=== PATIENT | male | born 1945 | race Caucasian/White ===

== ENCOUNTER 2023-12-19 06:48 | Emergency (ER) | payer MEDICARE, OTHER ==
[~2023-12-19] VITALS: Ht 172.7 cm; Wt 92.9 kg
[~2023-12-19 06:48] MED LIST: AMLO10TA13 PO; BENZ-111 PO; BISO5TAB20 PO; FAMO20TA8 PO; FERR142T13 PO; FLUT9.9S BOTHNARES; GUAI-652 PO; HYAL60CA PO; LISI20TA28 PO; LOPE2CAP PO; LORA10CA PO; METO10TA3 PO; MULT-1172 PO; TRAZ-256 PO; VITA-268 PO; [UNRECOGNIZED DRUG - CODE] PO
[2023-12-19 07:22] LABS: BASOPHILS # (AUTO) 0.1 X10'3 (0-0.2); BASOPHILS % (AUTO) 0.5 % (0-1); EOSINOPHILS # (AUTO) 0.1 X10'3 (0-0.9); EOSINOPHILS % (AUTO) 0.7 % (0-6); HEMATOCRIT 33.3 % (42.0-52.0); HEMOGLOBIN 11.2 g/dl (14.0-17.9); LYMPHOCYTES # (AUTO) 1.5 X10'3 (1.1-4.8); LYMPHOCYTES % (AUTO) 13.6 % (21-51); MEAN CORPUSCULAR HGB CONC 33.6 g/dL (33.0-36.5); MEAN CORPUSCULAR VOLUME 86.4 FL (78-98); MEAN PLATELET VOLUME 7.6 FL (7.4-10.4); MONOCYTES # (AUTO) 2.6 X10'3 (0-0.9); MONOCYTES % (AUTO) 24.1 % (2-12); NEUTROPHILS # (AUTO) 6.7 X10'3 (1.8-7.7); NEUTROPHILS % (AUTO) 61.1 % (42-75); PLATELET COUNT 291 X10'3 (140-440); RED BLOOD COUNT 3.85 X10'6 (4.70-6.10); RED CELL DISTRIBUTION WIDTH 17.5 % (11.5-14.5); WHITE BLOOD COUNT 10.9 X10'3 (4.5-11.0)
[2023-12-19 07:52] LABS: ALBUMIN 3.1 G/DL (3.4-5.0); ANION GAP 14 (8-16); BLOOD UREA NITROGEN 7 MG/DL (7-18); BUN/CREATININE RATIO 7.9 (10.0-20.0); CALCIUM 7.2 MG/DL (8.5-10.1); CHLORIDE 100 MMOL/L (99-107); CREATININE 0.89 MG/DL (0.60-1.10); GLUCOSE 154 MG/DL (70-104); POTASSIUM 3.1 MMOL/L (3.5-5.1); PRO BRAIN NATRIURETIC PEPTIDE 104 PG/ML (0-450); SODIUM 138 MMOL/L (135-145); TOTAL CARBON DIOXIDE 23.6 MMOL/L (24-32); eCRCL 64 ML/MIN; eGFR 82 ML/MIN
[2023-12-19 08:11] VITALS: TEMP 98.1
[2023-12-19 08:14] LABS: TOTAL CELLS COUNTED 100
[2023-12-19 08:15] LABS: ANISOCYTOSIS 1+; ELLIPTOCYTES FEW; PLATELET ESTIMATE NORMAL; POLYCHROMASIA FEW; STOMATOCYTES FEW; TEAR DROP CELLS FEW
[2023-12-19] MEDS ORDERED: potassium Cl 20 mEq SR tablet PO STA (08:28)
[2023-12-19] MEDS: predniSONE 20 mg tablet PO ONE (09:03)
[2023-12-19] MEDS: ondansetron 4mg rapidly disintigrating tab PO ONE (09:03)
[2023-12-19] MEDS: amox tr/potassium clavulanate 875/125mg TAB PO ONE (09:03)
[2023-12-19] MEDS: albuterol 2.5 MG/3 ML nebule NEB ONE (11:35)
[2023-12-19 11:36] VITALS: PULSE 97; RESP 18; O2SAT 92
[2023-12-19] MEDS: metoclopramide 5 mg/ml inj IV ONE (11:41)
[2023-12-19 11:50] VITALS: PULSE 81; RESP 16; O2SAT 96
[2023-12-19] MEDS ORDERED: HYDR473S79 PO (12:37)
[2023-12-19] MEDS ORDERED: PRED20TA PO (12:37)
[2023-12-19] MEDS ORDERED: ONDA4TAB12 PO (12:37)
[2023-12-19] MEDS ORDERED: ALBU8HFA INH (12:37)
[2023-12-19] MEDS ORDERED: AMOX-580 PO (12:38)
[2023-12-19 12:53] VITALS: BP 110/68; PULSE 100; RESP 20; O2SAT 93
[2023-12-19] MEDS ORDERED: QUET25TA PO (15:34)
== END 2023-12-19 12:57 | disposition home or self-care (01) ==
LOC: ER 06:48
DX: R05.9 Cough, unspecified (principal); J98.01 Acute bronchospasm
CPT/HCPCS: 36415; 71046; 80048; 83605; 83880; 85007; 85025; 87040; 94640; 94760; 96374; 99285; J2765; J7512

== ENCOUNTER 2023-12-21 15:44 | Inpatient (IN) | payer MEDICARE, OTHER ==
[~2023-12-21] VITALS: Ht 172.7 cm; Wt 94.5 kg
[~2023-12-21 15:44] MED LIST changes: +ALBU8HFA INH; +AMOX-580 PO; +HYDR473S79 PO; +ONDA4TAB12 PO; +PRED20TA PO; +QUET25TA PO
[2023-12-21 16:46] LABS: BASOPHILS % (AUTO) 0.1 % (0-1); EOSINOPHILS % (AUTO) 0 % (0-6); HEMATOCRIT 30.8 % (42.0-52.0); HEMOGLOBIN 10.2 g/dl (14.0-17.9); LYMPHOCYTES # (AUTO) 1.2 X10'3 (1.1-4.8); LYMPHOCYTES % (AUTO) 8.2 % (21-51); MEAN CORPUSCULAR HEMOGLOBIN 28.4 PG (27.0-31.0); MEAN CORPUSCULAR HGB CONC 33.1 g/dL (33.0-36.5); MEAN PLATELET VOLUME 7.4 FL (7.4-10.4); MONOCYTES # (AUTO) 0.8 X10'3 (0-0.9); MONOCYTES % (AUTO) 5.6 % (2-12); NEUTROPHILS # (AUTO) 12.5 X10'3 (1.8-7.7); NEUTROPHILS % (AUTO) 86.1 % (42-75); PLATELET COUNT 294 X10'3 (140-440); RED BLOOD COUNT 3.58 X10'6 (4.70-6.10); RED CELL DISTRIBUTION WIDTH 17.6 % (11.5-14.5); WHITE BLOOD COUNT 14.5 X10'3 (4.5-11.0)
[2023-12-21 17:04] LABS: ANION GAP 16 (8-16); BLOOD UREA NITROGEN 18 MG/DL (7-18); BUN/CREATININE RATIO 15.9 (10.0-20.0); CALCIUM 6.8 MG/DL (8.5-10.1); CHLORIDE 101 MMOL/L (99-107); CREATININE 1.13 MG/DL (0.60-1.10); GLUCOSE 279 MG/DL (70-104); POTASSIUM 3.9 MMOL/L (3.5-5.1); SODIUM 138 MMOL/L (135-145); TOTAL CARBON DIOXIDE 20.8 MMOL/L (24-32); eCRCL 50 ML/MIN; eGFR 62 ML/MIN
[2023-12-21 17:11] LABS: ANISOCYTOSIS 1+; PLATELET ESTIMATE NORMAL
[2023-12-21 17:12] LABS: BURR CELLS FEW; ELLIPTOCYTES FEW; POLYCHROMASIA FEW; TEAR DROP CELLS FEW
[2023-12-21 20:10] VITALS: PULSE 94; RESP 20; O2SAT 94
[2023-12-21] MEDS: albuterol 2.5 MG/3 ML nebule CONTNEB PRN (20:10)
[2023-12-21] MEDS: ipratropium 0.5 MG/2.5ML nebule IH ONE (20:10)
[2023-12-21 21:11] VITALS: PULSE 118; RESP 18; O2SAT 93
[2023-12-21] MEDS ORDERED: potassium Cl 20 mEq SR tablet PO PRN (21:20)
[2023-12-21] MEDS ORDERED: ondansetron/PF 4mg/2ml inj IV PRN (21:20)
[2023-12-21] MEDS ORDERED: magnesium 4gm in 100ml NS 100 ML IV PRN (21:20)
[2023-12-21] MEDS ORDERED: potassium Cl 40MEQ/1/2NS 520ml 520 ML IV PRN (21:20)
[2023-12-21] MEDS ORDERED: magnesium Cl slow-release 64mg tablet PO PRN (21:20)
[2023-12-21] MEDS ORDERED: magnesium hydroxide 30ml (MOM) UD suspension PO PRN (21:20)
[2023-12-21] MEDS ORDERED: guaiFENesin 200mg/20mg codeine phos 10ml UD oral syrup PO PRN (21:50)
[2023-12-21] MEDS ORDERED: glucagon, human recombinant 1mg kit SUBCUT PRN (21:55)
[2023-12-21] MEDS ORDERED: dextrose 50%-water 50ml dispensing syringe IV PRN ×2 (21:55)
[2023-12-21] MEDS ORDERED: DEXTROSE 15 GM of carb/4 tabs (each vial/BOTTLE has 4 tablets) PO PRN ×2 (21:55)
[2023-12-21] MEDS: CefTRIAXone/D5W-Rocephin 1gm 50 ML IV ONE (21:57)
[2023-12-21] MEDS: normal saline 1000ml 1,000 ML IV SCH (21:58)
[2023-12-21] MEDS: normal saline 1000ML IV soln IVB ONE (21:58)
[2023-12-21] MEDS: azithromycin/NS 500mg/250ml 250 ML IV ONE (21:58)
[2023-12-21] MEDS: guaiFENesin 200mg/20mg codeine phos 10ml UD oral syrup PO ONE (22:39)
[2023-12-21] MEDS: MESSAGE TO PHARMACY PO ONE (23:07)
[2023-12-21] MEDS: ipratropium/albuterol 3ml nebule NEB SCH (23:17)
[2023-12-21 23:18] VITALS: PULSE 104; RESP 20; O2SAT 94
[2023-12-21 23:25] VITALS: PULSE 105; RESP 25
[2023-12-22] VITALS (13 sets, daily range): BP systolic 103–152; BP diastolic 58–78; PULSE 94–105; RESP 15–20; TEMP 93–98.1; O2SAT 91–96
[2023-12-22] MEDS: CefTRIAXone 2gm/D5W 50ml BAG 50 ML IV SCH (07:23)
[2023-12-22] MEDS: heparin, porcine 5000 units/ml vial SQ SCH (07:24)
[2023-12-22] MEDS: azithromycin/NS 500mg/250ml 250 ML IV SCH (07:24)
[2023-12-22] MEDS: docusate sod 100mg capsule PO SCH (07:24)
[2023-12-22] MEDS: sucralfate 1 gm tablet PO SCH (07:25)
[2023-12-22] MEDS: methylPREDNISolone sod succ 125mg/2ml vial IV SCH (07:25)
[2023-12-22] MEDS: pantoprazole 40 MG vial IV SCH (07:25)
[2023-12-22 07:47] LABS: BASOPHILS % (AUTO) 0.2 % (0-1); EOSINOPHILS # (AUTO) 0.1 X10'3 (0-0.9); EOSINOPHILS % (AUTO) 0.4 % (0-6); HEMATOCRIT 28.1 % (42.0-52.0); HEMOGLOBIN 9.4 g/dl (14.0-17.9); LYMPHOCYTES # (AUTO) 3.4 X10'3 (1.1-4.8); LYMPHOCYTES % (AUTO) 21.7 % (21-51); MEAN CORPUSCULAR HEMOGLOBIN 28.8 PG (27.0-31.0); MEAN CORPUSCULAR HGB CONC 33.6 g/dL (33.0-36.5); MEAN CORPUSCULAR VOLUME 85.7 FL (78-98); MONOCYTES # (AUTO) 1.2 X10'3 (0-0.9); MONOCYTES % (AUTO) 7.4 % (2-12); NEUTROPHILS # (AUTO) 10.9 X10'3 (1.8-7.7); NEUTROPHILS % (AUTO) 70.3 % (42-75); PLATELET COUNT 279 X10'3 (140-440); RED BLOOD COUNT 3.27 X10'6 (4.70-6.10); RED CELL DISTRIBUTION WIDTH 17.7 % (11.5-14.5); WHITE BLOOD COUNT 15.5 X10'3 (4.5-11.0)
[2023-12-22] MEDS ORDERED: iohexol 300mg/ml 100ml inj. ONE (07:59)
[2023-12-22 08:19] LABS: ANION GAP 13 (8-16); BLOOD UREA NITROGEN 17 MG/DL (7-18); BUN/CREATININE RATIO 17.7 (10.0-20.0); CALCIUM 6.2 MG/DL (8.5-10.1); CHLORIDE 105 MMOL/L (99-107); CREATININE 0.96 MG/DL (0.60-1.10); GLUCOSE 115 MG/DL (70-104); POTASSIUM 3.1 MMOL/L (3.5-5.1); SODIUM 140 MMOL/L (135-145); TOTAL CARBON DIOXIDE 22.1 MMOL/L (24-32); eCRCL 59 ML/MIN; eGFR 75 ML/MIN
[2023-12-22] MEDS: normal saline 500ml IV soln 1,000 ML IV ONE (08:40)
[2023-12-22 08:42] LABS: ANISOCYTOSIS 1+; NUCLEATED RED BLOOD CELLS 1 /100WBC (0-0); PLATELET ESTIMATE NORMAL; TOTAL CELLS COUNTED 100
[2023-12-22 08:43] LABS: ELLIPTOCYTES FEW; POLYCHROMASIA FEW
[2023-12-22 11:51] LABS: PRO BRAIN NATRIURETIC PEPTIDE 307 PG/ML (0-450)
[2023-12-22] MEDS: furosemide 40mg/4ml inj IV SCH (12:12)
[2023-12-22] MEDS ORDERED: PRED10TA23 PO (17:47)
[2023-12-22] MEDS: potassium Cl 20 mEq SR tablet PO PRN (18:08)
[2023-12-22] MEDS ORDERED: DEXTROMETHORPHAN PO PRN (18:15)
[2023-12-22] MEDS ORDERED: benzonatate 100mg capsule PO PRN (18:15)
[2023-12-22] MEDS ORDERED: [UNRECOGNIZED DRUG - OTHER] PO PRN (18:15)
[2023-12-22] MEDS ORDERED: GUAIFENESIN PO PRN (18:15)
[2023-12-22] MEDS: thiamine 100mg/ml 2ml inj. IM SCH (20:00)
[2023-12-22] MEDS ORDERED: bisoprolol 5mg tablet PO SCH (20:00)
[2023-12-22] MEDS: traZODone 50mg tablet PO SCH (21:00)
[2023-12-22] MEDS: famotidine 20mg tablet PO SCH (21:18)
[2023-12-22] MEDS: acetaminophen 325mg tablet PO PRN (21:21)
[2023-12-22] MEDS: insulin glargine (Lantus) pen - multi-dose SQ SCH (23:02)
[2023-12-23] VITALS (21 sets, daily range): BP systolic 123–165; BP diastolic 57–70; PULSE 83–112; RESP 16–20; TEMP 97.8–98.1; O2SAT 91–97
[2023-12-23 04:52] LABS: EOSINOPHILS % (AUTO) 0 % (0-6); RED CELL DISTRIBUTION WIDTH 18.2 % (11.5-14.5)
[2023-12-23 04:55] LABS: BASOPHILS % (AUTO) 0.1 % (0-1); HEMATOCRIT 30.7 % (42.0-52.0); HEMOGLOBIN 10.2 g/dl (14.0-17.9); LYMPHOCYTES # (AUTO) 1.4 X10'3 (1.1-4.8); LYMPHOCYTES % (AUTO) 8.5 % (21-51); MEAN CORPUSCULAR HEMOGLOBIN 28.8 PG (27.0-31.0); MEAN CORPUSCULAR HGB CONC 33.1 g/dL (33.0-36.5); MEAN CORPUSCULAR VOLUME 86.8 FL (78-98); MEAN PLATELET VOLUME 7.4 FL (7.4-10.4); MONOCYTES # (AUTO) 0.8 X10'3 (0-0.9); MONOCYTES % (AUTO) 4.9 % (2-12); NEUTROPHILS # (AUTO) 14.6 X10'3 (1.8-7.7); NEUTROPHILS % (AUTO) 86.5 % (42-75); PLATELET COUNT 283 X10'3 (140-440); RED BLOOD COUNT 3.53 X10'6 (4.70-6.10); WHITE BLOOD COUNT 16.9 X10'3 (4.5-11.0)
[2023-12-23 05:10] LABS: D-DIMER 6.35 MG/L FEU (0-0.50)
[2023-12-23 05:20] LABS: ALANINE AMINOTRANSFERASE 22 U/L (12-78); ALBUMIN 3.1 G/DL (3.4-5.0); ALKALINE PHOSPHATASE 89 IU/L (46-116); ANION GAP 18 (8-16); ASPARTATE AMINO TRANSFERASE 15 U/L (10-37); BILIRUBIN,TOTAL 0.2 MG/DL (0.1-1.0); BLOOD UREA NITROGEN 18 MG/DL (7-18); BUN/CREATININE RATIO 15.8 (10.0-20.0); CALCIUM 6.9 MG/DL (8.5-10.1); CHLORIDE 103 MMOL/L (99-107); CREATININE 1.14 MG/DL (0.60-1.10); GLUCOSE 214 MG/DL (70-104); POTASSIUM 3.6 MMOL/L (3.5-5.1); SODIUM 142 MMOL/L (135-145); TOTAL CARBON DIOXIDE 20.8 MMOL/L (24-32); TOTAL PROTEIN 6.3 G/DL (6.4-8.2); eCRCL 50 ML/MIN; eGFR 62 ML/MIN
[2023-12-23 05:31] LABS: TOTAL CELLS COUNTED 100
[2023-12-23 05:32] LABS: ANISOCYTOSIS 2+; ELLIPTOCYTES FEW; PLATELET ESTIMATE NORMAL
[2023-12-23] MEDS: normal saline 500ml IV soln 500 ML IV ONE (07:15)
[2023-12-23] MEDS ORDERED: sodium bicarbonate (8.4%) inj. 100 MEQ in dextrose 5%-water 1,000 ML IV SCH (07:20)
[2023-12-23] MEDS ORDERED: sodium bicarbonate (8.4%) inj. 100 MEQ in sodium chloride 0.45% 1,000 ML IV SCH (07:25)
[2023-12-23] MEDS: sodium bicarbonate (8.4%) inj. 100 MEQ in sodium chloride 0.45% 1,000 ML IV ONE (07:31)
[2023-12-23] MEDS: insulin Lispro (HumaLOG) vial - multi-dose SQ SCH (08:32)
[2023-12-23] MEDS: fluticasone nasal spray 16GM bottle NS PRN (08:34)
[2023-12-23] MEDS: amLODIPine 5mg tablet PO SCH (08:44)
[2023-12-23] MEDS: atenolol 50mg tablet PO SCH (08:47)
[2023-12-23 09:54] LABS: PRO BRAIN NATRIURETIC PEPTIDE 621 PG/ML (0-450)
[2023-12-23] MEDS: enoxaparin 100mg/ml syringe SUBCUT ONE (10:54)
[2023-12-23] MEDS: FERROUS SULFATE 142 MG TABLET.ER (45mg elemental) PO SCH (10:59)
[2023-12-23 19:13] LABS: ALBUMIN 2.8 G/DL (3.4-5.0); ANION GAP 14 (8-16); BLOOD UREA NITROGEN 17 MG/DL (7-18); BUN/CREATININE RATIO 17.7 (10.0-20.0); CHLORIDE 104 MMOL/L (99-107); CREATININE 0.96 MG/DL (0.60-1.10); GLUCOSE 171 MG/DL (70-104); POTASSIUM 3.8 MMOL/L (3.5-5.1); SODIUM 140 MMOL/L (135-145); TOTAL CARBON DIOXIDE 22.5 MMOL/L (24-32); eCRCL 59 ML/MIN; eGFR 75 ML/MIN
[2023-12-23] MEDS: furosemide 40mg/4ml inj IV SCH (20:21)
[2023-12-24] VITALS (12 sets, daily range): BP systolic 110–143; BP diastolic 48–74; PULSE 81–102; RESP 10–25; TEMP 97.3–99.3; O2SAT 93–98
[2023-12-24 06:25] LABS: BASOPHILS # (AUTO) 0.1 X10'3 (0-0.2); BASOPHILS % (AUTO) 0.4 % (0-1); EOSINOPHILS # (AUTO) 0.1 X10'3 (0-0.9); EOSINOPHILS % (AUTO) 0.3 % (0-6); HEMATOCRIT 30.6 % (42.0-52.0); HEMOGLOBIN 10.2 g/dl (14.0-17.9); LYMPHOCYTES # (AUTO) 3.4 X10'3 (1.1-4.8); LYMPHOCYTES % (AUTO) 22.5 % (21-51); MEAN CORPUSCULAR HEMOGLOBIN 28.8 PG (27.0-31.0); MEAN CORPUSCULAR HGB CONC 33.2 g/dL (33.0-36.5); MEAN CORPUSCULAR VOLUME 86.7 FL (78-98); MONOCYTES % (AUTO) 6.6 % (2-12); NEUTROPHILS # (AUTO) 10.6 X10'3 (1.8-7.7); NEUTROPHILS % (AUTO) 70.2 % (42-75); PLATELET COUNT 272 X10'3 (140-440); RED BLOOD COUNT 3.54 X10'6 (4.70-6.10); RED CELL DISTRIBUTION WIDTH 17.6 % (11.5-14.5); WHITE BLOOD COUNT 15.2 X10'3 (4.5-11.0)
[2023-12-24 06:31] LABS: ALBUMIN 3.1 G/DL (3.4-5.0); ANION GAP 16 (8-16); BLOOD UREA NITROGEN 19 MG/DL (7-18); BUN/CREATININE RATIO 19.6 (10.0-20.0); CALCIUM 7.4 MG/DL (8.5-10.1); CHLORIDE 102 MMOL/L (99-107); CREATININE 0.97 MG/DL (0.60-1.10); GLUCOSE 120 MG/DL (70-104); POTASSIUM 3.5 MMOL/L (3.5-5.1); SODIUM 140 MMOL/L (135-145); TOTAL CARBON DIOXIDE 21.9 MMOL/L (24-32); eCRCL 59 ML/MIN; eGFR 74 ML/MIN
[2023-12-24] MEDS: pantoprazole 40 MG vial IV SCH (11:58)
[2023-12-25 02:00] VITALS: BP 151/78; PULSE 81; RESP 16; TEMP 97.1; O2SAT 96
[2023-12-25] MEDS: guaiFENesin ER 600mg tablet PO PRN (04:18)
[2023-12-25 06:00] VITALS: BP 119/70; PULSE 83; RESP 15; TEMP 97.1; O2SAT 99
[2023-12-25 06:04] LABS: BASOPHILS % (AUTO) 0.2 % (0-1); EOSINOPHILS % (AUTO) 0.3 % (0-6); HEMATOCRIT 32.3 % (42.0-52.0); HEMOGLOBIN 10.7 g/dl (14.0-17.9); LYMPHOCYTES # (AUTO) 2.1 X10'3 (1.1-4.8); LYMPHOCYTES % (AUTO) 13.6 % (21-51); MEAN CORPUSCULAR HEMOGLOBIN 28.6 PG (27.0-31.0); MEAN CORPUSCULAR HGB CONC 33.3 g/dL (33.0-36.5); MEAN CORPUSCULAR VOLUME 85.8 FL (78-98); MEAN PLATELET VOLUME 7.1 FL (7.4-10.4); MONOCYTES # (AUTO) 0.9 X10'3 (0-0.9); MONOCYTES % (AUTO) 5.7 % (2-12); NEUTROPHILS # (AUTO) 12.2 X10'3 (1.8-7.7); NEUTROPHILS % (AUTO) 80.2 % (42-75); PLATELET COUNT 246 X10'3 (140-440); RED BLOOD COUNT 3.76 X10'6 (4.70-6.10); RED CELL DISTRIBUTION WIDTH 18.3 % (11.5-14.5); WHITE BLOOD COUNT 15.2 X10'3 (4.5-11.0)
[2023-12-25 06:17] LABS: ALBUMIN 3.1 G/DL (3.4-5.0); ANION GAP 11 (8-16); BLOOD UREA NITROGEN 21 MG/DL (7-18); BUN/CREATININE RATIO 22.6 (10.0-20.0); CALCIUM 7.9 MG/DL (8.5-10.1); CHLORIDE 103 MMOL/L (99-107); CREATININE 0.93 MG/DL (0.60-1.10); GLUCOSE 115 MG/DL (70-104); SODIUM 140 MMOL/L (135-145); TOTAL CARBON DIOXIDE 25.6 MMOL/L (24-32); eCRCL 61 ML/MIN; eGFR 78 ML/MIN
[2023-12-25 08:24] VITALS: PULSE 86; RESP 18; O2SAT 97
[2023-12-25 08:25] VITALS: PULSE 89; RESP 18
[2023-12-25] MEDS: famotidine 20mg tablet PO SCH (08:52)
[2023-12-25] MEDS: thiamine 100mg/ml 2ml inj. IV SCH (08:54)
[2023-12-25] MEDS ORDERED: LOSA50TA64 PO (10:27)
[2023-12-25] MEDS ORDERED: CARV-50 PO (10:27)
[2023-12-25] MEDS ORDERED: PANT-47 PO (10:27)
[2023-12-25] MEDS ORDERED: PRED10TA23 PO (10:29)
[2023-12-25 11:00] VITALS: BP 136/68; PULSE 90; RESP 28; TEMP 98.3; O2SAT 96
== END 2023-12-25 15:40 | disposition home or self-care (01) | DRG 291 ==
LOC: ER 15:44 → ED HOLD 21:29 → EDBEDREQ 12-22 05:03 → SUR 3N 12-22 09:26 → PCU 3S 12-22 17:10
PROVIDERS: ADMIT Internal Medicine; ATTEND Internal Medicine
PROC: CB1YYZZ Planar Nuclear Medicine Imaging of Respiratory System using Other Radionuclide (ICD-10-PCS; principal; 2023-12-23)
DX: I11.0 Hypertensive heart disease with heart failure (principal); I50.33 Acute on chronic diastolic (congestive) heart failure; J96.00 Acute respiratory failure, unspecified whether with hypoxia or hypercapnia; J44.1 Chronic obstructive pulmonary disease with (acute) exacerbation; J44.0 Chronic obstructive pulmonary disease with (acute) lower respiratory infection; E87.20 Acidosis, unspecified; R65.10 Systemic inflammatory response syndrome (SIRS) of non-infectious origin without acute organ dysfunction; C79.51 Secondary malignant neoplasm of bone; J20.9 Acute bronchitis, unspecified; K21.9 Gastro-esophageal reflux disease without esophagitis; D63.8 Anemia in other chronic diseases classified elsewhere; F32.A Depression, unspecified; R73.9 Hyperglycemia, unspecified; Z20.822 Contact with and (suspected) exposure to COVID-19; Z66 Do not resuscitate; F10.90 Alcohol use, unspecified, uncomplicated; Z88.1 Allergy status to other antibiotic agents; Z79.899 Other long term (current) drug therapy; Z87.891 Personal history of nicotine dependence; Z85.46 Personal history of malignant neoplasm of prostate; Z92.21 Personal history of antineoplastic chemotherapy; Z91.041 Radiographic dye allergy status; Z88.8 Allergy status to other drugs, medicaments and biological substances
CPT/HCPCS: 36415; 71045; 71046; 71250; 78582; 80048; 80053; 82948; 83036; 83605; 83880; 84484; 85007; 85008; 85025; 85379; 87040; 87502; 87503; 87634; 87811; 92508; 92616; 93005; 93306; 94640; 94760; 96374; 97116; 97161; 97530; 99285; A6250; A7015; A9539; A9540; C9113; G0378; J0456; J0696; J1644; J1650; J1815; J1940; J2765; J2930; J3411; J3490; J7030; J7040; J7512; Q9967

== ENCOUNTER 2024-07-18 09:37 | Emergency (ER) | payer MEDICARE, OTHER ==
[~2024-07-18] VITALS: Ht 172.7 cm; Wt 89.0 kg
[~2024-07-18 09:37] MED LIST changes: -ALBU8HFA INH; -AMLO10TA13 PO; -AMOX-580 PO; +CARV-50 PO; -FAMO20TA8 PO; -LISI20TA28 PO; -LOPE2CAP PO; +LOSA50TA64 PO; +ONDA-243 PO; -ONDA4TAB12 PO; +PANT-47 PO; -PRED20TA PO
[2024-07-18 09:38] VITALS: TEMP 97.3
[2024-07-18 10:37] LABS: CLARITY,URINE BLOODY (Clear); COLOR,URINE RED (Yellow); UA COLLECTION TYPE VOIDED
[2024-07-18 10:40] LABS: RBC,URINE TNTC /HPF (0-2)
[2024-07-18 10:41] LABS: WBC,URINE 50-100 /HPF (0-4)
[2024-07-18 10:42] LABS: BACTERIA,URINE FEW /HPF (Neg)
[2024-07-18 10:43] LABS: SQUAMOUS EPITHELIAL CELL,UR FEW /LPF (FEW)
[2024-07-18 11:37] VITALS: BP 110/55; PULSE 98; RESP 16; O2SAT 98
== END 2024-07-18 11:39 | disposition home or self-care (01) ==
LOC: ER 09:37
DX: R31.9 Hematuria, unspecified (principal); I10 Essential (primary) hypertension; Z88.1 Allergy status to other antibiotic agents; Z91.041 Radiographic dye allergy status; Z88.8 Allergy status to other drugs, medicaments and biological substances; Z91.018 Allergy to other foods; Z79.899 Other long term (current) drug therapy; Z72.89 Other problems related to lifestyle; Z85.89 Personal history of malignant neoplasm of other organs and systems
CPT/HCPCS: 81001; 87088; 99283

== ENCOUNTER 2024-08-08 10:08 | Emergency (ER) | payer MEDICARE, OTHER ==
[~2024-08-08] VITALS: Ht 172.7 cm; Wt 89.0 kg
[2024-08-08 10:15] VITALS: TEMP 97.6
[2024-08-08] MEDS: LidoCAINE 2% Topical Jelly 11mL syringe (UROJET) TOP ONE (12:25)
[2024-08-08 13:42] LABS: BILIRUBIN,URINE NEGATIVE (Neg); CLARITY,URINE SLIGHTLY CLOUDY (Clear); COLOR,URINE YELLOW (Yellow); GLUCOSE, URINE NEGATIVE (Neg); KETONES,URINE NEGATIVE (Neg); LEUKOCYTE ESTERASE ,URINE SMALL (Neg); NITRITES, URINE NEGATIVE (Neg); OCCULT BLOOD,URINE NEGATIVE (Neg); PROTEIN,URINE NEGATIVE (Neg); UROBILINOGEN,URINE 0.2 E.U/dL (0.2-1.0)
[2024-08-08 13:46] LABS: UA COLLECTION TYPE NON-SPECIFIED
[2024-08-08 13:47] LABS: BACTERIA,URINE 4+ /HPF (Neg); SQUAMOUS EPITHELIAL CELL,UR FEW /LPF (FEW); WBC,URINE TNTC /HPF (0-4)
[2024-08-08 13:49] LABS: WBC CLUMPS,URINE FEW /HPF (NEGATIVE)
[2024-08-08 13:51] LABS: URIC ACID CRYSTALS FEW /HPF (NEGATIVE)
[2024-08-08] MEDS ORDERED: CEPH-585 PO (14:44)
[2024-08-08 15:15] VITALS: BP 120/47; PULSE 79; RESP 16; O2SAT 96
== END 2024-08-08 15:15 | disposition home or self-care (01) ==
LOC: ER 10:08
DX: R33.9 Retention of urine, unspecified (principal); I10 Essential (primary) hypertension; Z91.041 Radiographic dye allergy status; Z88.1 Allergy status to other antibiotic agents; Z88.8 Allergy status to other drugs, medicaments and biological substances; Z87.891 Personal history of nicotine dependence; Z79.899 Other long term (current) drug therapy
CPT/HCPCS: 51702; 81001; 87088; 99284; A4314; A4358

== ENCOUNTER 2024-08-29 00:25 | Emergency (ER) | payer MEDICARE, OTHER ==
[~2024-08-29] VITALS: Ht 172.7 cm; Wt 87.2 kg
[~2024-08-29 00:25] MED LIST changes: +CEPH-585 PO
[2024-08-29 02:30] LABS: BILIRUBIN,URINE NEGATIVE (Neg); CLARITY,URINE CLEAR (Clear); COLOR,URINE YELLOW (Yellow); GLUCOSE, URINE NEGATIVE (Neg); KETONES,URINE NEGATIVE (Neg); LEUKOCYTE ESTERASE ,URINE NEGATIVE (Neg); NITRITES, URINE NEGATIVE (Neg); OCCULT BLOOD,URINE LARGE (Neg); PROTEIN,URINE TRACE mg/dl (Neg); UROBILINOGEN,URINE 0.2 E.U/dL (0.2-1.0)
[2024-08-29 02:47] LABS: UA COLLECTION TYPE FOLEY CATH
[2024-08-29 02:49] LABS: AMORPHOUS URATES 1+; BACTERIA,URINE FEW /HPF (Neg); SQUAMOUS EPITHELIAL CELL,UR FEW /LPF (FEW); URIC ACID CRYSTALS FEW /HPF (NEGATIVE); WBC,URINE 0-4 /HPF (0-4)
[2024-08-29] MEDS ORDERED: FLO0.4C PO (02:58)
[2024-08-29 03:14] VITALS: BP 146/73; PULSE 68; RESP 14; TEMP 97.9; O2SAT 98
== END 2024-08-29 03:21 | disposition home or self-care (01) ==
LOC: ER 00:27
DX: T83.9XXA Unspecified complication of genitourinary prosthetic device, implant and graft, initial encounter (principal); I10 Essential (primary) hypertension; Z91.041 Radiographic dye allergy status; Z88.8 Allergy status to other drugs, medicaments and biological substances; Z88.1 Allergy status to other antibiotic agents; Z79.899 Other long term (current) drug therapy; Z87.891 Personal history of nicotine dependence
CPT/HCPCS: 81001; 99284

== ENCOUNTER 2024-12-10 21:34 | Emergency (ER) | payer MEDICARE, OTHER ==
[~2024-12-10] VITALS: Ht 172.7 cm; Wt 85.3 kg
[2024-12-10 22:57] LABS: BILIRUBIN,URINE NEGATIVE (Neg); CLARITY,URINE CLEAR (Clear); COLOR,URINE YELLOW (Yellow); GLUCOSE, URINE NEGATIVE (Neg); KETONES,URINE NEGATIVE (Neg); LEUKOCYTE ESTERASE ,URINE MODERATE (Neg); NITRITES, URINE POSITIVE (Neg); OCCULT BLOOD,URINE LARGE (Neg); PH,URINE 5.5 (4.8-8.0); PROTEIN,URINE 100 mg/dl (Neg); UROBILINOGEN,URINE 0.2 E.U/dL (0.2-1.0)
[2024-12-10 23:06] LABS: UA COLLECTION TYPE FOLEY CATH
[2024-12-10 23:07] LABS: BACTERIA,URINE 4+ /HPF (Neg); RBC,URINE TNTC /HPF (0-2); SQUAMOUS EPITHELIAL CELL,UR NONE SEEN /LPF (FEW); WBC,URINE TNTC /HPF (0-4)
[2024-12-11] MEDS: normal saline 1000ML IV soln IVB ONE (01:02)
[2024-12-11 01:22] VITALS: TEMP 98.9
[2024-12-11] MEDS ORDERED: CEFU250T95 PO (01:38)
[2024-12-11] MEDS: CefTRIAXone/D5W-Rocephin 1gm 50 ML IV ONE ×2 (01:52→02:13)
[2024-12-11] MEDS: normal saline 1000ml 1,000 ML IV ONE (01:53)
[2024-12-11] MEDS: acetaminophen 325mg tablet PO ONE (01:53)
[2024-12-11 03:17] VITALS: BP 126/58; PULSE 74; RESP 16; O2SAT 95
== END 2024-12-11 03:19 | disposition home or self-care (01) ==
LOC: ER 21:35
DX: T85.9XXA Unspecified complication of internal prosthetic device, implant and graft, initial encounter (principal); I10 Essential (primary) hypertension; Z91.041 Radiographic dye allergy status; Z88.1 Allergy status to other antibiotic agents; Z88.8 Allergy status to other drugs, medicaments and biological substances; Z79.899 Other long term (current) drug therapy; Z72.89 Other problems related to lifestyle
CPT/HCPCS: 51702; 81001; 87088; 96361; 96365; 96375; 99284; A4314; A4338; A5200; J0696; J7030; 87077; 87186

== ENCOUNTER 2024-12-11 07:02 | Emergency (ER) | payer MEDICARE, OTHER ==
[~2024-12-11] VITALS: Ht 172.7 cm; Wt 82.0 kg
[~2024-12-11 07:02] MED LIST changes: +CEFU250T95 PO
[2024-12-11 07:08] VITALS: BP 148/65; PULSE 72; RESP 16; TEMP 98; O2SAT 97
== END 2024-12-11 07:49 | disposition home or self-care (01) ==
LOC: ER 07:03
DX: T83.9XXA Unspecified complication of genitourinary prosthetic device, implant and graft, initial encounter (principal); I10 Essential (primary) hypertension; Z91.041 Radiographic dye allergy status; Z88.1 Allergy status to other antibiotic agents; Z88.8 Allergy status to other drugs, medicaments and biological substances; Z85.46 Personal history of malignant neoplasm of prostate; Z79.899 Other long term (current) drug therapy; Z72.89 Other problems related to lifestyle; Y92.89 Other specified places as the place of occurrence of the external cause
CPT/HCPCS: 99284

== ENCOUNTER 2025-01-20 14:24 | Emergency (ER) | payer MEDICARE, OTHER ==
[~2025-01-20] VITALS: Ht 172.7 cm; Wt 82.3 kg
[~2025-01-20 14:24] MED LIST changes: -CEFU250T95 PO
[2025-01-20] MEDS: LidoCAINE 2% Topical Jelly 11mL syringe (UROJET) TOP ONE ×2 (16:50→20:24)
[2025-01-20 20:24] VITALS: TEMP 98
[2025-01-20] MEDS: HYDROcodone/acetaminophen 10/325mg tab PO ONE (22:22)
[2025-01-20 23:56] VITALS: BP 152/64; PULSE 93; RESP 16; O2SAT 94
== END 2025-01-21 00:04 | disposition home or self-care (01) ==
LOC: ER 14:25
DX: T83.9XXA Unspecified complication of genitourinary prosthetic device, implant and graft, initial encounter (principal); I10 Essential (primary) hypertension; Z87.891 Personal history of nicotine dependence; Z88.1 Allergy status to other antibiotic agents; Z91.041 Radiographic dye allergy status; Z88.8 Allergy status to other drugs, medicaments and biological substances; Y92.89 Other specified places as the place of occurrence of the external cause
CPT/HCPCS: 51702; 51798; 99284; A4314; A4346; A4355; A5200; J7030

== ENCOUNTER 2025-01-22 11:23 | Emergency (ER) | payer MEDICARE, OTHER ==
[~2025-01-22] VITALS: Ht 172.7 cm; Wt 81.8 kg
[2025-01-22 15:00] VITALS: BP 110/45; PULSE 86; RESP 14; TEMP 97.9; O2SAT 97
== END 2025-01-22 15:00 | disposition home or self-care (01) ==
LOC: ER 11:24
DX: R31.9 Hematuria, unspecified (principal); T83.091A Other mechanical complication of indwelling urethral catheter, initial encounter; I10 Essential (primary) hypertension; Z85.46 Personal history of malignant neoplasm of prostate; Z87.891 Personal history of nicotine dependence; Z88.1 Allergy status to other antibiotic agents; Z88.8 Allergy status to other drugs, medicaments and biological substances; Z91.041 Radiographic dye allergy status; Y84.6 Urinary catheterization as the cause of abnormal reaction of the patient, or of later complication, without mention of misadventure at the time of the procedure
CPT/HCPCS: 99281; A4358

== ENCOUNTER 2025-01-22 20:36 | Emergency (ER) | payer MEDICARE, OTHER ==
[~2025-01-22] VITALS: Ht 172.7 cm; Wt 81.8 kg
[2025-01-22 23:02] VITALS: BP 140/60; PULSE 80; RESP 18; TEMP 98.6; O2SAT 99
== END 2025-01-22 23:03 | disposition home or self-care (01) ==
LOC: ER 20:37
DX: T83.9XXA Unspecified complication of genitourinary prosthetic device, implant and graft, initial encounter (principal); I10 Essential (primary) hypertension; Z85.46 Personal history of malignant neoplasm of prostate; Z87.891 Personal history of nicotine dependence; Z88.1 Allergy status to other antibiotic agents; Z91.041 Radiographic dye allergy status; Z88.8 Allergy status to other drugs, medicaments and biological substances; Y92.89 Other specified places as the place of occurrence of the external cause
CPT/HCPCS: 99281